=== PATIENT | male | born 1995 ===

== ENCOUNTER 2020-06-29 11:27 | Observation (INO) | payer MEDICAID, SELFPAY ==
[2020-06-29] VITALS (81 sets, daily range): BP systolic 93–126; BP diastolic 37–82; PULSE 56–103; RESP 9–31; TEMP 36.5; O2SAT 90–100
--- NOTE | 2020-06-29 11:30 | RT.EKG_ITS ---
APPROVED REPORT Exam: Resting ECG Patient Location: E HR:75 bpm ECG Measurements Heart Rate 75 AXIS NM 120 P 69 QRSd 99 QRS 40 QT 389 T 50 QTc 436 Conclusion Sinus rhythm...normal P axis, V-rate 60- 99 I have reviewed and interpreted ECG and agree with software generated interpretation.
[2020-06-29] MEDS: Normal Saline 1,000 ML 1000 ML IV (11:45)
[2020-06-29] MEDS: LORazepam 2 MG/ML VIAL ×2 (11:45→11:56)
--- NOTE | 2020-06-29 11:45 | DI.RAD_ITS ---
EXAM: XR PELVIS AP CLINICAL HISTORY: s/p fall, r/o acute fx. TECHNIQUE: 2D digital imaging was performed. COMPARISON: No exams were available for comparison FINDINGS: BONES: No acute fracture is present. No bony destructive lesion is seen. JOINTS: No dislocation present. No joint space narrowing is present. The SI joints and pubic symphysis are intact. SOFT TISSUE: Normal. IMPRESSION: Unremarkable radiographs of the pelvis. DATA REPOSITORY: RADIATION DOSE DELIVERED:
--- NOTE | 2020-06-29 11:51 | W.ED.GENAD ---
Discharge Plan Disposition Patient Disposition: [facility] INPATIENT Condition: Stable Discharge Details Clinical Impression: Post-ictal state, Seizure disorder, History of medication noncompliance Primary Care Provider: Stacy,Local ED Provider: Carol Jiang Home Meds and New Rx's Prescriptions: No Action phenytoin sodium 100 mg Capsule See Rx Instructions .ROUTE .COMPLEX RF: 0 divalproex 500 mg Tablet,Delayed Release (Dr/Ec) 1,000 mg PO BID RF: 0 topiramate 50 mg Tablet 50 mg PO BID RF: 0 Medical Decision Making 1130 -- 24-year-old male with a history of seizure disorder, medication noncompliance, cannabis dependence, GI bleed presents for seizure noted upon hotel staff checking on him in his hotel room this morning. Given 10 mg of Versed intranasal per EMS. Patient noted to be obtunded on arrival but with positive gag reflex. PERRLA. Oxygen saturation 90% on nonrebreather at 15 L. Lung sounds clear bilaterally. No evidence of trauma on exam. No orthopedic deformities noted. No head trauma noted. Patient was noted by nursing and respiratory to have what appeared to be seizure activity on his right side left approximately 30 seconds. Patient given 1mg Ativan IV. A few minutes later, he was noted to have seizure activity lasting 30 seconds for which an additional 1 mg of Ativan was given. Considering patient's history of noncompliance with medications and allergy to Keppra, will load with Dilantin IV. We will check screening labs, CT head and cervical spine, chest and pelvic x-ray. 1200 --labs reviewed. White blood cell count 19, consistent likely with stress response. ABG notes a pH of 7.2, PO2 of 73, bicarb of 19 and lactate of 4, likely status post seizure. Normal salicylates and acetaminophen. Negative alcohol. Dilantin level on low end of normal. Valproic acid level low. UDS positive for benzos likely secondary to EMS administration and also THC. 1300--chest x-ray, CT head and cervical spine negative. Pelvis x-ray negative. Patient reassessed -no further seizure activity. He is appearing more alert and moving all extremities but still not following commands. We will continue to monitor. 1540 --patient reassessed and he is more responsive to verbal but does not answer questions or follow commands. He is moving all extremities and remains hemodynamically stable. Attempted to reach his mother twice by phone and left a message with no response. Will admit patient for prolonged postictal state. Case discussed with hospitalist who accepts patient for admission. Medical Records Medical records reviewed: Yes I reviewed the patient's medical records. Imaging Data Radiologic Study: Radiologist's impression: XR PORTABLE CHEST AP CLINICAL HISTORY: s/p seizure, hypoxic, r/o acute disease TECHNIQUE: 2D digital imaging was performed. COMPARISON: No exams were available for comparison FINDINGS: LUNGS: Lungs are suboptimally inflated but clear. No pleural abnormality seen. HEART: Normal. MEDIASTINUM: Normal. BONES: Unremarkable. The stomach is somewhat distended. Clinical correlation is recommended. IMPRESSION: No acute pulmonary findings. XR PELVIS AP CLINICAL HISTORY: s/p fall, r/o acute fx. TECHNIQUE: 2D digital imaging was performed. COMPARISON: No exams were available for comparison FINDINGS: BONES: No acute fracture is present. No bony destructive lesion is seen. JOINTS: No dislocation present. No joint space narrowing is present. The SI joints and pubic symphysis are intact. SOFT TISSUE: Normal. IMPRESSION: Unremarkable radiographs of the pelvis. CT HEAD CERVICAL SPINE WO CLINICAL HISTORY: s/p seizure, head injury, r/o acute injury. TECHNIQUE: Imaging Protocol: Axial computed tomography images with coronal and sagittal reformatted images were created and reviewed COMPARISON: No exams were available for comparison FINDINGS: Head CT Ventricles and Extra axial spaces: Normal in size and morphology for the patient's age. Hemorrhage: None. Cerebral parenchyma: Normal. Midline shift: None. Brainstem/Cerebellum: Normal. Calvarium: Normal. Visualized Paranasal sinuses/Mastoids: Minimal ethmoid sinus mucosal thickening. Cervical Spine CT BONES: Vertebral body heights are maintained. Alignment is normal. There is no evidence of acute fracture. . SOFT TISSUES: No paraspinal hematoma. The airway appears intact. No pneumothorax is seen at the lung apices. IMPRESSION: Head CT: No acute abnormality. C-spine CT: Normal.. Lab Data Lab results reviewed: Yes I reviewed the patient's lab results. Labs: 06/29/20 11:55 Urine - Reflex from Ua Urine Culture - Pending Laboratory Tests Range/Units 06/29/20 06/29/20 06/29/20 11:40 11:40 11:40 WBC (4.4-10.8) 10^3/uL RBC (4.36-5.78) 10^6/uL Hgb (13.5-17.5) g/dL Hct (40.0-50.0) % MCV (80-95) fL MCH (27.0-33.0) pg MCHC (32.0-36.0) % RDW (11.8-14.1) % Plt Count (130-400) 10^3/uL MPV (8.0-11.0) fL Immature Gran % Neutrophils % Lymphocytes % Monocytes % Eosinophils % Basophils % Nucleated RBC % % Absolute Neutrophils (1.2-6.7) 10^3/uL Absolute Lymphocytes (1.2-3.4) 10^3/uL Absolute Monocytes (0.1-0.8) 10^3/uL Absolute Eosinophils (0.0-0.7) 10^3/uL Absolute Basophils (0.0-0.2) 10^3/uL PT (9.3-11.0) sec 10.1 INR (0.9-1.1) 1.0 APTT (21.0-27.5) sec 20.5 L ABG Sample Site ABG pH (7.35-7.45) ABG pCO2 (35-45) mmHg ABG pO2 (80-105) mmHg ABG HCO3 (22-26) mmol/L ABG Total CO2 (23-27) mmol/L ABG O2 Saturation (95-98) % ABG Base Excess (-2-3) mmol/L VBG Lactate (0.6-1.4) mmol/L FiO2 % Sodium (136-145) mmol/L 141 Potassium (3.5-5.1) mmol/L 3.2 L Chloride (98-107) mmol/L 107 Carbon Dioxide (21.0-32.0) mmol/L 20.5 L Anion Gap (3-11) mmol/L 13.5 H BUN (7-18) mg/dL 9 Creatinine (0.70-1.30) mg/dL 1.09 Estimated GFR/1.73 m2 (mL/min/1.73m2) >= 60.00 Glucose (74-106) mg/dL 258 H Calcium (8.5-10.1) mg/dL 8.3 L Magnesium (1.8-2.4) mg/dL 1.6 L Total Bilirubin (0.2-1.0) mg/dL 0.2 AST (15-37) U/L 12 L ALT (16-63) U/L 16 Alkaline Phosphatase (46-116) U/L 72 Troponin I (<0.06) ng/mL < 0.05 Total Protein (6.4-8.2) g/dL 6.8 Albumin (3.4-5.0) g/dL 3.6 Urine Color (Yellow) Urine Clarity (Clear) Urine pH (5-8) Ur Specific [place] (1.005-1.025) Urine Protein (Negative) mg/dL Urine Ketones (Negative) mg/dL Urine Blood (Negative) Urine Nitrite (Negative) Urine Bilirubin (Negative) Urine Urobilinogen (Up TO 0.2) EU/dL Ur Leukocyte Esterase (Negative) Urine RBC (0-2) HPF Urine WBC (0-5) HPF Ur Epithelial Cells (Negative) HPF Urine Crystals (Negative) HPF Urine Bacteria (Negative) HPF Urine Casts (Negative) LPF Urine Mucus (Negative) Urine Other (Negative) Ur Culture Indicated? Urine Glucose (Negative) mg/dL Salicylates (2.8-20.0) mg/dL Urine Opiates Screen (Negative) Urine Methadone Screen (Negative) Acetaminophen (10-30) ug/mL < 2 Ur Barbiturates Screen (Negative) Phenytoin (10.0-20.0) ug/mL Total Valproic Acid (50-100) ug/mL Ur Tricyclics Screen (Negative) Ur Amphetamines Screen (Negative) U Benzodiazepines Scrn (Negative) Urine Cocaine Screen (Negative) Ur THC Screen (Negative) Ethyl Alcohol (<3) mg/dL Range/Units 06/29/20 06/29/20 06/29/20 11:40 11:40 11:40 WBC (4.4-10.8) 10^3/uL 19.99 H RBC (4.36-5.78) 10^6/uL 4.62 Hgb (13.5-17.5) g/dL 14.0 Hct (40.0-50.0) % 42.6 MCV (80-95) fL 92.2 MCH (27.0-33.0) pg 30.3 MCHC (32.0-36.0) % 32.9 RDW (11.8-14.1) % 12.9 Plt Count (130-400) 10^3/uL 274 MPV (8.0-11.0) fL 10.2 Immature Gran % 1.7 Neutrophils % 81.7 Lymphocytes % 10.7 Monocytes % 5.3 Eosinophils % 0.4 Basophils % 0.2 Nucleated RBC % % 0 Absolute Neutrophils (1.2-6.7) 10^3/uL 16.33 H Absolute Lymphocytes (1.2-3.4) 10^3/uL 2.14 Absolute Monocytes (0.1-0.8) 10^3/uL 1.06 H Absolute Eosinophils (0.0-0.7) 10^3/uL 0.08 Absolute Basophils (0.0-0.2) 10^3/uL 0.04 PT (9.3-11.0) sec INR (0.9-1.1) APTT (21.0-27.5) sec ABG Sample Site ABG pH (7.35-7.45) ABG pCO2 (35-45) mmHg ABG pO2 (80-105) mmHg ABG HCO3 (22-26) mmol/L ABG Total CO2 (23-27) mmol/L ABG O2 Saturation (95-98) % ABG Base Excess (-2-3) mmol/L VBG Lactate (0.6-1.4) mmol/L FiO2 % Sodium (136-145) mmol/L Potassium (3.5-5.1) mmol/L Chloride (98-107) mmol/L Carbon Dioxide (21.0-32.0) mmol/L Anion Gap (3-11) mmol/L BUN (7-18) mg/dL Creatinine (0.70-1.30) mg/dL Estimated GFR/1.73 m2 (mL/min/1.73m2) Glucose (74-106) mg/dL Calcium (8.5-10.1) mg/dL Magnesium (1.8-2.4) mg/dL Total Bilirubin (0.2-1.0) mg/dL AST (15-37) U/L ALT (16-63) U/L Alkaline Phosphatase (46-116) U/L Troponin I (<0.06) ng/mL Total Protein (6.4-8.2) g/dL Albumin (3.4-5.0) g/dL Urine Color (Yellow) Urine Clarity (Clear) Urine pH (5-8) Ur Specific [place] (1.005-1.025) Urine Protein (Negative) mg/dL Urine Ketones (Negative) mg/dL Urine Blood (Negative) Urine Nitrite (Negative) Urine Bilirubin (Negative) Urine Urobilinogen (Up TO 0.2) EU/dL Ur Leukocyte Esterase (Negative) Urine RBC (0-2) HPF Urine WBC (0-5) HPF Ur Epithelial Cells (Negative) HPF Urine Crystals (Negative) HPF Urine Bacteria (Negative) HPF Urine Casts (Negative) LPF Urine Mucus (Negative) Urine Other (Negative) Ur Culture Indicated? Urine Glucose (Negative) mg/dL Salicylates (2.8-20.0) mg/dL 5.5 Urine Opiates Screen (Negative) Urine Methadone Screen (Negative) Acetaminophen (10-30) ug/mL Ur Barbiturates Screen (Negative) Phenytoin (10.0-20.0) ug/mL Total Valproic Acid (50-100) ug/mL Ur Tricyclics Screen (Negative) Ur Amphetamines Screen (Negative) U Benzodiazepines Scrn (Negative) Urine Cocaine Screen (Negative) Ur THC Screen (Negative) Ethyl Alcohol (<3) mg/dL < 3.0 Range/Units 06/29/20 06/29/20 06/29/20 11:40 11:40 11:46 WBC (4.4-10.8) 10^3/uL RBC (4.36-5.78) 10^6/uL Hgb (13.5-17.5) g/dL Hct (40.0-50.0) % MCV (80-95) fL MCH (27.0-33.0) pg MCHC (32.0-36.0) % RDW (11.8-14.1) % Plt Count (130-400) 10^3/uL MPV (8.0-11.0) fL Immature Gran % Neutrophils % Lymphocytes % Monocytes % Eosinophils % Basophils % Nucleated RBC % % Absolute Neutrophils (1.2-6.7) 10^3/uL Absolute Lymphocytes (1.2-3.4) 10^3/uL Absolute Monocytes (0.1-0.8) 10^3/uL Absolute Eosinophils (0.0-0.7) 10^3/uL Absolute Basophils (0.0-0.2) 10^3/uL PT (9.3-11.0) sec INR (0.9-1.1) APTT (21.0-27.5) sec ABG Sample Site ABG pH (7.35-7.45) ABG pCO2 (35-45) mmHg ABG pO2 (80-105) mmHg ABG HCO3 (22-26) mmol/L ABG Total CO2 (23-27) mmol/L ABG O2 Saturation (95-98) % ABG Base Excess (-2-3) mmol/L VBG Lactate (0.6-1.4) mmol/L 4.0 H* FiO2 % Sodium (136-145) mmol/L Potassium (3.5-5.1) mmol/L Chloride (98-107) mmol/L Carbon Dioxide (21.0-32.0) mmol/L Anion Gap (3-11) mmol/L BUN (7-18) mg/dL Creatinine (0.70-1.30) mg/dL Estimated GFR/1.73 m2 (mL/min/1.73m2) Glucose (74-106) mg/dL Calcium (8.5-10.1) mg/dL Magnesium (1.8-2.4) mg/dL Total Bilirubin (0.2-1.0) mg/dL AST (15-37) U/L ALT (16-63) U/L Alkaline Phosphatase (46-116) U/L Troponin I (<0.06) ng/mL Total Protein (6.4-8.2) g/dL Albumin (3.4-5.0) g/dL Urine Color (Yellow) Urine Clarity (Clear) Urine pH (5-8) Ur Specific [place] (1.005-1.025) Urine Protein (Negative) mg/dL Urine Ketones (Negative) mg/dL Urine Blood (Negative) Urine Nitrite (Negative) Urine Bilirubin (Negative) Urine Urobilinogen (Up TO 0.2) EU/dL Ur Leukocyte Esterase (Negative) Urine RBC (0-2) HPF Urine WBC (0-5) HPF Ur Epithelial Cells (Negative) HPF Urine Crystals (Negative) HPF Urine Bacteria (Negative) HPF Urine Casts (Negative) LPF Urine Mucus (Negative) Urine Other (Negative) Ur Culture Indicated? Urine Glucose (Negative) mg/dL Salicylates (2.8-20.0) mg/dL Urine Opiates Screen (Negative) Urine Methadone Screen (Negative) Acetaminophen (10-30) ug/mL Ur Barbiturates Screen (Negative) Phenytoin (10.0-20.0) ug/mL 10.6 Total Valproic Acid (50-100) ug/mL 23.6 L Ur Tricyclics Screen (Negative) Ur Amphetamines Screen (Negative) U Benzodiazepines Scrn (Negative) Urine Cocaine Screen (Negative) Ur THC Screen (Negative) Ethyl Alcohol (<3) mg/dL Range/Units 06/29/20 06/29/20 06/29/20 11:46 11:55 11:55 WBC (4.4-10.8) 10^3/uL RBC (4.36-5.78) 10^6/uL Hgb (13.5-17.5) g/dL Hct (40.0-50.0) % MCV (80-95) fL MCH (27.0-33.0) pg MCHC (32.0-36.0) % RDW (11.8-14.1) % Plt Count (130-400) 10^3/uL MPV (8.0-11.0) fL Immature Gran % Neutrophils % Lymphocytes % Monocytes % Eosinophils % Basophils % Nucleated RBC % % Absolute Neutrophils (1.2-6.7) 10^3/uL Absolute Lymphocytes (1.2-3.4) 10^3/uL Absolute Monocytes (0.1-0.8) 10^3/uL Absolute Eosinophils (0.0-0.7) 10^3/uL Absolute Basophils (0.0-0.2) 10^3/uL PT (9.3-11.0) sec INR (0.9-1.1) APTT (21.0-27.5) sec ABG Sample Site Right radial ABG pH (7.35-7.45) 7.27 L ABG pCO2 (35-45) mmHg 40 ABG pO2 (80-105) mmHg 73 L ABG HCO3 (22-26) mmol/L 19 L ABG Total CO2 (23-27) mmol/L 17 L ABG O2 Saturation (95-98) % 93 L ABG Base Excess (-2-3) mmol/L -8 L VBG Lactate (0.6-1.4) mmol/L FiO2 % 100 nrb Sodium (136-145) mmol/L Potassium (3.5-5.1) mmol/L Chloride (98-107) mmol/L Carbon Dioxide (21.0-32.0) mmol/L Anion Gap (3-11) mmol/L BUN (7-18) mg/dL Creatinine (0.70-1.30) mg/dL Estimated GFR/1.73 m2 (mL/min/1.73m2) Glucose (74-106) mg/dL Calcium (8.5-10.1) mg/dL Magnesium (1.8-2.4) mg/dL Total Bilirubin (0.2-1.0) mg/dL AST (15-37) U/L ALT (16-63) U/L Alkaline Phosphatase (46-116) U/L Troponin I (<0.06) ng/mL Total Protein (6.4-8.2) g/dL Albumin (3.4-5.0) g/dL Urine Color (Yellow) Yellow Urine Clarity (Clear) Clear Urine pH (5-8) 6.0 Ur Specific [place] (1.005-1.025) >= 1.030 H Urine Protein (Negative) mg/dL >=300 H Urine Ketones (Negative) mg/dL Negative Urine Blood (Negative) Trace-intact H Urine Nitrite (Negative) Negative Urine Bilirubin (Negative) Negative Urine Urobilinogen (Up TO 0.2) EU/dL 0.2 Ur Leukocyte Esterase (Negative) Negative Urine RBC (0-2) HPF 3-5 H Urine WBC (0-5) HPF 3-5 Ur Epithelial Cells (Negative) HPF Negative Urine Crystals (Negative) HPF Few amorphous Urine Bacteria (Negative) HPF Moderate Urine Casts (Negative) LPF Comment Urine Mucus (Negative) Heavy Urine Other (Negative) Rare renal Ur Culture Indicated? Yes Urine Glucose (Negative) mg/dL 100 Salicylates (2.8-20.0) mg/dL Urine Opiates Screen (Negative) Negative Urine Methadone Screen (Negative) Negative Acetaminophen (10-30) ug/mL Ur Barbiturates Screen (Negative) Negative Phenytoin (10.0-20.0) ug/mL Total Valproic Acid (50-100) ug/mL Ur Tricyclics Screen (Negative) Negative Ur Amphetamines Screen (Negative) Negative U Benzodiazepines Scrn (Negative) Positive A Urine Cocaine Screen (Negative) Negative Ur THC Screen (Negative) Positive A Ethyl Alcohol (<3) mg/dL ECG Data Attestation: I personally reviewed and interpreted this ECG (s) as follows: Interpretation: Rate of 75, sinus, no acute ST elevation or depression. OR 120. QRS 99. QTc 436. HPI General Mode of arrival: EMS. Date/Time Provider Initiated Documentation: 06/29/20 11:31. Limitations to Documentation: altered mental status. Information obtained by: EMS. HPI Narrative: Patient is a 24-year-old male with a known seizure disorder presents for witnessed seizure at his hotel room prior to arrival. Per EMS, staff was doing a regular check on residence in the hotel and upon staff checking on him he was noted to be sleeping in his bed. Upon EMS arrival patient was still sleeping, unknown duration of seizure. He was given 10 mg of intranasal Versed per EMS and seizure stopped. EMS states that upon transferring patient from the bed to the stretcher, he hit his head on the metal structure. He denies any change in mental status and back. Upon arrival to the ED, patient is obtunded and unable to answer questions. Able to receive paperwork from [facility] which noted patient was last seen there on 05/06/2020 for a witnessed seizure. Patient chart at that time noted that patient has a history of multiple visits for seizures with prolonged post-ictal state and a history of seizure medication noncompliance and drug abuse. His chart noted a history of cannabis dependence, generalized epilepsy, GI bleed. Related Data Home Medications Medication Instructions Recorded Confirmed divalproex 1,000 mg PO BID 06/29/20 06/29/20 phenytoin sodium See Rx Instructions .ROUTE .COMPLEX 06/29/20 06/29/20 topiramate 50 mg PO BID 06/29/20 06/29/20 Allergies Allergy/AdvReac Type Severity Reaction Status Date / Time levetiracetam [From Keppra] Allergy Unverified 06/29/20 11:40 General Stated Complaint: Seizure PIA: 1 Review of Systems Unobtainable due to mental status [facility] Medical History (Updated 06/29/20 @ 16:28 by Carol Jiang DO) Seizure disorder Social History Smoking/Tobacco Use Status: Unknown Smoking risk assessment performed?: Yes Substance use type: marijuana Details: Unable to obtain complete Hx. Exam Const General: diaphoretic Nutritional Appearance: thin Orientation: obtunded HENMT Head: normal to inspection Ears: external ears normal General nose exam: external nose normal Face and sinus: normal facial exam Mouth: oral mucosae normal and tongue abnormal (split tongue, appears healed) Teeth and gingiva: dentition normal Throat: posterior oropharynx normal and other (+ gag reflex) Eyes General: appearance normal, both eyes and all related structures Eyelids: eyelids normal Pupils: PERRL Neck Neck: normal visual inspection Lymphatic: no lymphadenopathy noted Chest Chest: normal inspection of the chest Resp Effort & Inspection: decreased respiratory effort Cardio Rate: regular rate Rhythm: regular rhythm GI Inspection: normal to inspection Palpation: soft, not firm, no guarding, no hepatosplenomegaly, no masses and nontender Auscultation: normal bowel sounds Back/Spine/Pelvis Thoracic/Lumbar Spine: thoracic and lumbar spine normal to inspection Pelvis: no pain with anterior-posterior compression Skin General skin exam: no rashes or lesions noted Neuro General: patient obtunded Cranial Nerves: gag reflex normal Extrem Other: No deformity or evidence of trauma with range of motion in bilateral upper and lower extremities. Course Vital Signs Vital signs: Vital Signs Pulse 87 06/29/20 11:28 Respiratory Rate 22 06/29/20 11:28 Blood Pressure 117/68 06/29/20 11:28 Pulse Oximetry 95 06/29/20 11:28 Pulse 87 06/29/20 11:28 Respiratory Rate 22 06/29/20 11:28 Blood Pressure 117/68 06/29/20 11:28 Blood Pressure Position Supine 06/29/20 11:28 Pulse Oximetry 95 06/29/20 11:28 Oxygen Delivery Method Non-Rebreather 06/29/20 11:28
[2020-06-29 11:54] LABS: BE -8 mmol/L (-2-3); HCO3 19 mmol/L (22-26); Site Right Radial; pCO2 40 mmHg (35-45); pH 7.27 (7.35-7.45); pO2 73 mmHg (80-105); sO2 93 % (95-98); tCO2 17 mmol/L (23-27)
[2020-06-29 11:55] LABS: FIO2 100 NRB %
--- NOTE | 2020-06-29 12:04 | DI.RAD_ITS ---
EXAM: XR PORTABLE CHEST AP CLINICAL HISTORY: s/p seizure, hypoxic, r/o acute disease TECHNIQUE: 2D digital imaging was performed. COMPARISON: No exams were available for comparison FINDINGS: LUNGS: Lungs are suboptimally inflated but clear. No pleural abnormality seen. HEART: Normal. MEDIASTINUM: Normal. BONES: Unremarkable. The stomach is somewhat distended. Clinical correlation is recommended. IMPRESSION: No acute pulmonary findings. DATA REPOSITORY: RADIATION DOSE DELIVERED:
[2020-06-29 12:07] LABS: Abs Immature Grans 0.33 10^3/uL (0.0-0.06); Absolute Basophil Count 0.04 10^3/uL (0.0-0.2); Absolute Eosinophil Count 0.08 10^3/uL (0.0-0.7); Absolute Lymphocyte Count 2.14 10^3/uL (1.2-3.4); Basophils % 0.2; Eosinophils % 0.4; HCT 42.6 % (40.0-50.0); Immature Grans % 1.7; Lymphocytes % 10.7; MCH 30.3 pg (27.0-33.0); MCHC 32.9 % (32.0-36.0); MCV 92.2 fL (80-95); MPV 10.2 fL (8.0-11.0); Monocytes % 5.3; Neutrophils % 81.7; Nucleated RBC 0 %; Platelet Count 274 10^3/uL (130-400); RBC 4.62 10^6/uL (4.36-5.78); RDW 12.9 % (11.8-14.1); RDW-SD 43.9 fL; WBC 19.99 10^3/uL (4.4-10.8)
[2020-06-29 12:11] LABS: Absolute Monocyte Count 1.06 10^3/uL (0.1-0.8); Absolute Neutrophil Count 16.33 10^3/uL (1.2-6.7)
[2020-06-29 12:12] LABS: Bilirubin Negative (Negative); Blood Trace-intact (Negative); Clarity Clear (Clear); Glucose 100 mg/dL (Negative); Ketones Negative (Negative); Leukocyte Esterase Negative (Negative); Nitrite Negative (Negative); Specific Gravity >= 1.030 (1.005-1.025); Urobilinogen 0.2 EU/dL (Up TO 0.2)
[2020-06-29 12:18] LABS: Salicylate 5.5 mg/dL (2.8-20.0)
[2020-06-29 12:20] LABS: PHENYTOIN (DILANTIN) 10.6 ug/mL (10.0-20.0)
[2020-06-29 12:22] LABS: Bacteria Moderate HPF (Negative); Crystals Few Amorphous HPF (Negative); Epithelial Cells Negative HPF (Negative); Other Cells Rare Renal (Negative)
[2020-06-29 12:23] LABS: Acetaminophen < 2 ug/mL (10-30); VALPROIC ACID 23.6 ug/mL (50-100)
[2020-06-29 12:23] LABS: C & S Indicated? Yes; Mucus Heavy (Negative)
[2020-06-29 12:24] LABS: ALT 16 U/L (16-63); AST 12 U/L (15-37); Albumin 3.6 g/dL (3.4-5.0); Alkaline Phosphatase 72 U/L (46-116); Anion Gap 13.5 mmol/L (3-11); BUN 9 mg/dL (7-18); Bilirubin, Total 0.2 mg/dL (0.2-1.0); CO2 20.5 mmol/L (21.0-32.0); CREATININE 1.09 mg/dL (0.70-1.30); Calcium 8.3 mg/dL (8.5-10.1); Chloride 107 mmol/L (98-107); Glucose 258 mg/dL (74-106); Magnesium 1.6 mg/dL (1.8-2.4); Potassium 3.2 mmol/L (3.5-5.1); Sodium 141 mmol/L (136-145); Total Protein 6.8 g/dL (6.4-8.2); Troponin I < 0.05 ng/mL (<0.06)
[2020-06-29 12:25] LABS: *AMPHETAMINES SCREEN URINE Negative (Negative); *BARBITURATES SCREEN URINE Negative (Negative); *BENZODIAZEPINES SCREEN URINE POSITIVE (Negative); Cannabinoids THC POSITIVE (Negative); Cocaine Screen,Urine Negative (Negative); METHADONE URINE SCREEN Negative (Negative); OPIATES URINE SCREEN Negative (Negative); Tricyclic Antidepressants Negative (Negative)
[2020-06-29 12:26] LABS: ETHANOL BLOOD < 3.0 mg/dL (<3); PTT Activated 20.5 sec (21.0-27.5); Prothrombin Time 10.1 sec (9.3-11.0)
[2020-06-29] MEDS: Ondansetron 4 MG/2 ML VIAL (12:30)
--- NOTE | 2020-06-29 12:40 | DI.CT_ITS ---
EXAM: CT HEAD CERVICAL SPINE WO CLINICAL HISTORY: s/p seizure, head injury, r/o acute injury. TECHNIQUE: Imaging Protocol: Axial computed tomography images with coronal and sagittal reformatted images were created and reviewed COMPARISON: No exams were available for comparison FINDINGS: Head CT Ventricles and Extra axial spaces: Normal in size and morphology for the patient's age. Hemorrhage: None. Cerebral parenchyma: Normal. Midline shift: None. Brainstem/Cerebellum: Normal. Calvarium: Normal. Visualized Paranasal sinuses/Mastoids: Minimal ethmoid sinus mucosal thickening. Cervical Spine CT BONES: Vertebral body heights are maintained. Alignment is normal. There is no evidence of acute frac ture. . SOFT TISSUES: No paraspinal hematoma. The airway appears intact. No pneumothorax is seen at the lung apices. IMPRESSION: Head CT: No acute abnormality. C-spine CT: Normal.. RADIATION DOSE DELIVERED: LINK-TO-SR Total DLP DATA REPOSITORY: All CT scans at this facility are submitted to the National Radiology Data Registry (NRDR) Dose Index Registry (DIR) with the [employer] ([employer]). RADIATION OPTIMIZATION: All CT scans at this facility use at least one of these dose optimization te chniques: automated exposure control; mA and/or kV adjustment per patient size (includes targeted exa ms where dose is matched to clinical indication); or iterative reconstruction.
--- NOTE | 2020-06-29 13:03 | NUR.NOTE ---
Nursing Note: Patient has had a total of 3 seizures since arrival to the ER. Seizure activity was limited to patients right arm and right facial. Seizures were witnessed lasting approx. 30 to 45 sec. The last seizure approx. 1225 patient appeared he was going to vomit and was given zofran 4 mg IVP. Patient received a total of Ativan 2 mg since arrival to the ER and no further seizure activity since 1225 and being loaded with dilantin. Patient has periods of intermittent restlessness. Eye open spontaneously and movement appears to be purposeful to make himself comfortable.
[2020-06-29] MEDS: Normal Saline 1,000 ML 125 ML IV (13:25)
--- NOTE | 2020-06-29 14:30 | NUR.NOTE ---
Nursing Note:Patient continues to wake up, more alert. Still does not respond verbally, has purposeful movement. No further seizure activity, SR on the monitor, remains on 8 L Oxisensor mask, VSS, see flow sheet. Discussed POC with Dr. Flores, will let patient wake up more for another hour and if possible discharge, if unable to will admit.
--- NOTE | 2020-06-29 15:49 | RESPIRATORY ---
Pt came in with seizures spo2 84% on NRB 15L. ABG done, 24 nasal trumpet placed in right nostril, suction set up, pt in high fowlers. Sp02 increased to 100% and pt has been titrated to oxy mask at 6L.
--- NOTE | 2020-06-29 17:48 | HPE_ITS ---
Date of service: 06/29/20 Time of Service: 17:48 Assessment and Plan Assessment and plan (1) Seizure disorder: Status: Chronic Assessment and plan: Question whether this is truly a breakthrough seizure versus seizure precipitated by poor medical compliance. Patient had at least 2 witnessed seizures 1 of which was witnessed by the hotel staff and EMS. Is unclear as to the duration of that event. It sounds like the event had resolved and he was brought in in an obtunded state but then had another episode in the ER and although they document to spell some is not clear as to whether there were 2 separate events or continuation of the same event. Nevertheless he responded to the Ativan and IV Dilantin he was given in the ER. Patient will be monitored overnight for any further seizures. As he is waking up we will restart his Dilantin and Depakote and Topamax. I will recheck a valproic acid level in the morning as well as a phenytoin level in the morning. Again EEG in the morning and asked neurology to weigh in on his case. I am not sure that he needs a higher dose or change in his medications when probably just need to be sure that he is being compliant with his medicines. I will correct his magnesium and potassium levels and continue IV fluid hydration overnight. (2) Post-ictal state: Status: Acute Assessment and plan: As above (3) History of medication noncompliance: Status: Acute (4) Hypokalemia: Status: Acute Assessment and plan: Corrected with parenteral potassium supplementation and recheck labs in the morning. Correct his hypomagnesemia with magnesium bolus. (5) Hypomagnesemia: Status: Acute Assessment and plan: As above (6) DVT prophylaxis: Status: Acute Assessment and plan: KEMI sanford and Herman. History of Present Illness History of Present Illness Chief Complaint: Seizure, prolonged postictal state Narrative: 24-year-old male with unknown history of seizure disorder and also history of medication noncompliance and chronic marijuana use who presented emergency department via EMS after being found at a local hotel by the clinic staff to be having a tonic-clonic seizure. EMS was contacted and they gave him Versed 10 mg intranasal. On arrival to emergency department he was obtunded with nonlabored respirations and an intact gag reflex. However patient had 2 episodes of brief episodes lasting 30 seconds or less of what was felt to be seizure activity for which he was treated with 1 mg Ativan IV both times. He was monitored in the ER and had routine labs x-rays of his chest pelvis and CT scan of his neck and head and was monitored in the ER but had a prolonged post ictal period of somnolence. He eventually became arousable and responsive to his name being called out but was not following commands therefore Dr. Jiang requested to be admitted overnight for monitoring of any further seizures as well as monitoring his postictal period. Patient was bolused with Dilantin 750 mg IV in the emergency department. He reportedly has a history of allergic reaction to Keppra. His home medications reportedly include Topamax 50 mg twice a day as well as divalproex 1000 mg twice daily and Dilantin 100 mg capsules 1 in the morning 2 at noon and 1 in the evening. Labs are remarkable for leukocytosis of 19,000, anion gap acidosis with an anion gap of 13.5 and a CO2 level of 20 and a low magnesium level of 1.6. LFT and renal function were normal. His phenytoin level was low end of therapeutic at 10.6 and his valproic acid level was subtherapeutic at 23.6 blood alcohol level is less than 3 and a Topamax level was ordered and sent out. Urine drug screen was positive for THC and benzodiazepines. CT of the head and cervical spine were unremarkable. Chest x-ray and pelvic x-ray were within normal limits. Review of Systems Unobtainable due to mental status [facility] Medical History Seizure disorder Social History Smoking/Tobacco Use Status: Unknown Smoking risk assessment performed?: Yes Substance use type: marijuana Details: Unable to obtain complete Hx. Meds Home Medications and Allergies Home Medications Medication Instructions Recorded Confirmed Type divalproex 1,000 mg PO BID 06/29/20 06/29/20 History phenytoin sodium See Rx Instructions .ROUTE .COMPLEX 06/29/20 06/29/20 History topiramate 50 mg PO BID 06/29/20 06/29/20 History Allergies Allergy/AdvReac Type Severity Reaction Status Date / Time levetiracetam [From Keppra] Allergy Unverified 06/29/20 11:40 Exam Narrative Exam Narrative: Young male who spontaneously opens his eyes when I call his name. He has trouble sustaining a conversation with me as he drifts back to sleep. When I asked him if he knows where he said he knows he is in the hospital but cannot correctly tell me the name the city. He thought he was in [facility]. He recognizes that he has seizure but cannot tell me the circumstances around which the seizure occurred nor would he or could he tell me where his seizure occurred. HEENT is remarkable for some chapped lips and dry mucous membranes. I did not see any bleeding of his oropharynx or buccal mucosa. Pupils equally round and reactive to direct and consensual light full extraocular motions intact no scleral icterus. Neck supple nontender no JVD normal carotid pulses no cervical adenopathy or thyromegaly Lungs are clear to auscultation Heart regular rate and rhythm Abdomen soft nontender NABS no palpable masses no organomegaly Extremities without bruising or lacerations I do not see any needle tracks on his feet or arms. He has full active range of motion. Neuro exam other than lethargy I am not finding any focal deficits. No facial asymmetry speech is clear and coherent normal range of motion strength in both upper and lower extremities normal sensation to light touch. Babinski reflexes absent bilaterally Results Labs Result diagrams: 06/29/20 11:40 06/29/20 11:40 Labs: Laboratory Results - last 24 hr 06/29/20 06/29/20 06/29/20 11:40 11:40 11:40 WBC RBC Hgb Hct MCV MCH MCHC RDW Plt Count MPV Immature Gran % Neutrophils % Lymphocytes % Monocytes % Eosinophils % Basophils % Nucleated RBC % Absolute Neutrophils Absolute Lymphocytes Absolute Monocytes Absolute Eosinophils Absolute Basophils PT 10.1 INR 1.0 APTT 20.5 L ABG Sample Site ABG pH ABG pCO2 ABG pO2 ABG HCO3 ABG Total CO2 ABG O2 Saturation ABG Base Excess VBG Lactate FiO2 Sodium 141 Potassium 3.2 L Chloride 107 Carbon Dioxide 20.5 L Anion Gap 13.5 H BUN 9 Creatinine 1.09 Estimated GFR/1.73 m2 >= 60.00 Glucose 258 H Calcium 8.3 L Magnesium 1.6 L Total Bilirubin 0.2 AST 12 L ALT 16 Alkaline Phosphatase 72 Troponin I < 0.05 Total Protein 6.8 Albumin 3.6 Urine Color Urine Clarity Urine pH Ur Specific [place] Urine Protein Urine Ketones Urine Blood Urine Nitrite Urine Bilirubin Urine Urobilinogen Ur Leukocyte Esterase Urine RBC Urine WBC Ur Epithelial Cells Urine Crystals Urine Bacteria Urine Casts Urine Mucus Urine Other Ur Culture Indicated? Urine Glucose Salicylates Urine Opiates Screen Urine Methadone Screen Acetaminophen < 2 Ur Barbiturates Screen Phenytoin Total Valproic Acid Ur Tricyclics Screen Ur Amphetamines Screen U Benzodiazepines Scrn Urine Cocaine Screen Ur THC Screen Ethyl Alcohol 06/29/20 06/29/20 06/29/20 11:40 11:40 11:40 WBC 19.99 H RBC 4.62 Hgb 14.0 Hct 42.6 MCV 92.2 MCH 30.3 MCHC 32.9 RDW 12.9 Plt Count 274 MPV 10.2 Immature Gran % 1.7 Neutrophils % 81.7 Lymphocytes % 10.7 Monocytes % 5.3 Eosinophils % 0.4 Basophils % 0.2 Nucleated RBC % 0 Absolute Neutrophils 16.33 H Absolute Lymphocytes 2.14 Absolute Monocytes 1.06 H Absolute Eosinophils 0.08 Absolute Basophils 0.04 PT INR APTT ABG Sample Site ABG pH ABG pCO2 ABG pO2 ABG HCO3 ABG Total CO2 ABG O2 Saturation ABG Base Excess VBG Lactate FiO2 Sodium Potassium Chloride Carbon Dioxide Anion Gap BUN Creatinine Estimated GFR/1.73 m2 Glucose Calcium Magnesium Total Bilirubin AST ALT Alkaline Phosphatase Troponin I Total Protein Albumin Urine Color Urine Clarity Urine pH Ur Specific [place] Urine Protein Urine Ketones Urine Blood Urine Nitrite Urine Bilirubin Urine Urobilinogen Ur Leukocyte Esterase Urine RBC Urine WBC Ur Epithelial Cells Urine Crystals Urine Bacteria Urine Casts Urine Mucus Urine Other Ur Culture Indicated? Urine Glucose Salicylates 5.5 Urine Opiates Screen Urine Methadone Screen Acetaminophen Ur Barbiturates Screen Phenytoin Total Valproic Acid Ur Tricyclics Screen Ur Amphetamines Screen U Benzodiazepines Scrn Urine Cocaine Screen Ur THC Screen Ethyl Alcohol < 3.0 06/29/20 06/29/20 06/29/20 11:40 11:40 11:46 WBC RBC Hgb Hct MCV MCH MCHC RDW Plt Count MPV Immature Gran % Neutrophils % Lymphocytes % Monocytes % Eosinophils % Basophils % Nucleated RBC % Absolute Neutrophils Absolute Lymphocytes Absolute Monocytes Absolute Eosinophils Absolute Basophils PT INR APTT ABG Sample Site ABG pH ABG pCO2 ABG pO2 ABG HCO3 ABG Total CO2 ABG O2 Saturation ABG Base Excess VBG Lactate 4.0 H* FiO2 Sodium Potassium Chloride Carbon Dioxide Anion Gap BUN Creatinine Estimated GFR/1.73 m2 Glucose Calcium Magnesium Total Bilirubin AST ALT Alkaline Phosphatase Troponin I Total Protein Albumin Urine Color Urine Clarity Urine pH Ur Specific [place] Urine Protein Urine Ketones Urine Blood Urine Nitrite Urine Bilirubin Urine Urobilinogen Ur Leukocyte Esterase Urine RBC Urine WBC Ur Epithelial Cells Urine Crystals Urine Bacteria Urine Casts Urine Mucus Urine Other Ur Culture Indicated? Urine Glucose Salicylates Urine Opiates Screen Urine Methadone Screen Acetaminophen Ur Barbiturates Screen Phenytoin 10.6 Total Valproic Acid 23.6 L Ur Tricyclics Screen Ur Amphetamines Screen U Benzodiazepines Scrn Urine Cocaine Screen Ur THC Screen Ethyl Alcohol 06/29/20 06/29/20 06/29/20 11:46 11:55 11:55 WBC RBC Hgb Hct MCV MCH MCHC RDW Plt Count MPV Immature Gran % Neutrophils % Lymphocytes % Monocytes % Eosinophils % Basophils % Nucleated RBC % Absolute Neutrophils Absolute Lymphocytes Absolute Monocytes Absolute Eosinophils Absolute Basophils PT INR APTT ABG Sample Site Right radial ABG pH 7.27 L ABG pCO2 40 ABG pO2 73 L ABG HCO3 19 L ABG Total CO2 17 L ABG O2 Saturation 93 L ABG Base Excess -8 L VBG Lactate FiO2 100 nrb Sodium Potassium Chloride Carbon Dioxide Anion Gap BUN Creatinine Estimated GFR/1.73 m2 Glucose Calcium Magnesium Total Bilirubin AST ALT Alkaline Phosphatase Troponin I Total Protein Albumin Urine Color Yellow Urine Clarity Clear Urine pH 6.0 Ur Specific [place] >= 1.030 H Urine Protein >=300 H Urine Ketones Negative Urine Blood Trace-intact H Urine Nitrite Negative Urine Bilirubin Negative Urine Urobilinogen 0.2 Ur Leukocyte Esterase Negative Urine RBC 3-5 H Urine WBC 3-5 Ur Epithelial Cells Negative Urine Crystals Few amorphous Urine Bacteria Moderate Urine Casts Comment Urine Mucus Heavy Urine Other Rare renal Ur Culture Indicated? Yes Urine Glucose 100 Salicylates Urine Opiates Screen Negative Urine Methadone Screen Negative Acetaminophen Ur Barbiturates Screen Negative Phenytoin Total Valproic Acid Ur Tricyclics Screen Negative Ur Amphetamines Screen Negative U Benzodiazepines Scrn Positive A Urine Cocaine Screen Negative Ur THC Screen Positive A Ethyl Alcohol Last Vital Signs Temp 36.5 C 06/29/20 16:45 Pulse 79 06/29/20 16:45 Resp 20 06/29/20 14:10 BP 110/63 06/29/20 14:03 Pulse Ox 100 06/29/20 14:10
[2020-06-29] MEDS: POTASSIUM CHLORIDE 20 MEQ/100 ML BAG 50 MEQ IVPB (20:15)
[2020-06-29] MEDS: MAGNESIUM SULFATE 4 GM/100 ML BAG IVPB (20:19)
[2020-06-29] MEDS: Topiramate 50 MG TAB PO (20:21)
[2020-06-29] MEDS: Enoxaparin 40 MG/0.4 ML SYR SC (20:21)
[2020-06-29] MEDS: Normal Saline Flush 10 ML SYR (20:21)
[2020-06-29] MEDS: Divalproex 500 MG TABEC 1000 MG PO (20:22)
[2020-06-30] MEDS: Acetaminophen 325 MG TAB PO ×2 (00:26→08:15)
[2020-06-30] MEDS: POTASSIUM CHLORIDE 20 MEQ/100 ML BAG 12.5 MEQ IVPB (02:44)
[2020-06-30 06:21] VITALS: BP 104/53; PULSE 86; RESP 15; TEMP 36.3; O2SAT 97
[2020-06-30 06:44] LABS: Abs Immature Grans 0.04 10^3/uL (0.0-0.06); Absolute Basophil Count 0.01 10^3/uL (0.0-0.2); Absolute Lymphocyte Count 1.44 10^3/uL (1.2-3.4); Absolute Monocyte Count 0.95 10^3/uL (0.1-0.8); Basophils % 0.1; HCT 39.3 % (40.0-50.0); Immature Grans % 0.4; Lymphocytes % 15.5; MCH 30.4 pg (27.0-33.0); MCHC 33.1 % (32.0-36.0); MCV 91.8 fL (80-95); MPV 10.1 fL (8.0-11.0); Monocytes % 10.2; Neutrophils % 73.8; Nucleated RBC 0 %; Platelet Count 157 10^3/uL (130-400); RBC 4.28 10^6/uL (4.36-5.78); RDW 12.7 % (11.8-14.1); RDW-SD 42.9 fL; WBC 9.27 10^3/uL (4.4-10.8)
[2020-06-30 06:49] LABS: Absolute Neutrophil Count 6.84 10^3/uL (1.2-6.7)
[2020-06-30 06:53] LABS: Anion Gap 7.2 mmol/L (3-11); BUN 5 mg/dL (7-18); CO2 26.8 mmol/L (21.0-32.0); CREATININE 1.02 mg/dL (0.70-1.30); Calcium 7.9 mg/dL (8.5-10.1); Chloride 108 mmol/L (98-107); Glucose 121 mg/dL (74-106); Magnesium 2.1 mg/dL (1.8-2.4); Potassium 3.8 mmol/L (3.5-5.1); Sodium 142 mmol/L (136-145)
[2020-06-30 06:58] LABS: VALPROIC ACID 43.9 ug/mL (50-100)
[2020-06-30 07:01] LABS: PHENYTOIN (DILANTIN) 16.7 ug/mL (10.0-20.0)
[2020-06-30 07:25] VITALS: PULSE 80
[2020-06-30] MEDS: Divalproex 500 MG TABEC 1000 MG PO (07:54)
[2020-06-30] MEDS: Topiramate 50 MG TAB PO ×2 (07:54→11:05)
[2020-06-30 08:29] LABS: COVID-19 RT-PCR UVMMC Result Negative (Negative)
[2020-06-30] MEDS: Divalproex 500 MG TABEC PO (08:50)
--- NOTE | 2020-06-30 09:14 | PDOC.CMIN ---
- If Service Date Differs Date of service: 06/30/20 Time of Service: 09:14 Care Management Initial Assess REASON FOR HOSPITALIZATION:: Seizure disorder PAST MEDICAL HISTORY/PAST SURGICAL HISTORY:: Medical History . Seizure disorder PREVIOUS FUNCTIONAL STATUS/SOCIAL/FAMILY SUPPORTS:: Terell is currently living at the [facility] in [place]. His mother and step father live in [facility]. He has 2 half brothers, a half sister and a step brother. He maintains contact with his brothers but not his siter who is only 4 years old and lives in [place]. Antoine is currently unemployed and is hoping to get disability. His seizure disorder has been a barrier to getting work he stated. CURRENT FUNCTIONAL STATUS:: Panfilo was preparing to discharge when CM met with him. He was given information re:[facility] and also the [facility] to assist with his disability application. CM coordinated transportation back to [place] through [facility]. ADVANCE DIRECTIVES:: None on file- not interested Has patient been provided with info about the portal/API?: Yes Did the patient sign up for the portal?: No CODE STATUS:: Full Code INSURANCE COVERAGE / FINANCIAL ISSUES:: Medicaid CURRENT HOME/COMMUNITY SERVICES/EQUIPMENT:: Panfilo is working with [employer] for housing and other needs. CM has sent a referral to [facility] and gave him contact information for [facility] to assist with an application for disability. PRIMARY CARE PHYSICIAN:: none local POTENTIAL DISCHARGE NEEDS:: Vocational rehab for assistance with disability PATIENT/FAMILY EDUCATION NEEDS:: Discharge plan, limitations, follow up plan, [employer] TRANSPORTATION:: via private vehicle with friends/family PLAN:: Panfilo will be discharged back to the [facility] with no new services. He will follow up with his PCP in [place] and transport via [facility].
--- NOTE | 2020-06-30 09:15 | W.PM.PROGNOT ---
Date of Service Date of service: 06/30/20 Time of Service: 09:15 Assessment and Plan Assessment and plan (1) Seizure disorder: Status: Chronic Assessment and plan: Continue current doses of Dilantin and Depakote and Topamax. Check EEG. We will consult with neurology regarding further management. (2) Post-ictal state: Status: Acute Assessment and plan: No longer postictal. He is alert and able to take his medications orally. (3) Hypokalemia: Status: Acute Assessment and plan: Resolved after IV and oral supplementation (4) Hypomagnesemia: Status: Acute Assessment and plan: Resolved with IV supplementation. (5) History of medication noncompliance: Status: Acute Assessment and plan: Patient denies noncompliance with his medications however his low valproic acid level and low phenytoin level would suggest otherwise. I think he will need to have a repeat level drawn once he is reached steady state. Will order repeat levels to be drawn next week and sent to his PCP (6) DVT prophylaxis: Status: Acute Assessment and plan: Remains on Lovenox and KEMI hose. Now that he is awake alert and oriented he did no longer needs DVT prophylaxis. He can freely ambulate. Subjective Subjective Interval history since last seen: Patient is awake and alert and oriented to person place time and circumstance. He has had no further seizure activity. His phenytoin level is therapeutic at 16 however his valproic acid level is subtherapeutic at 43. I have given him an extra dose of Depakote 500 mg this morning in addition to his usual dose of 1000 mg twice a day. Patient denies skipping any doses of his medicines. He is from the [facility] and usually sees Dr. Lehman however the patient was homeless and contacted 211 to obtain emergency housing. He is currently living in a motel at the [facility] in [facility]. He gets his prescriptions through [facility] says he has not been out of his antiepileptic drugs. Nevertheless he was found by hotel full time staff interpreter having a seizure. I would like him to get an EEG today and I requested a neurology consult to help guide his medication management. However, I feel that he can be discharged later today. Exam Narrative Exam Narrative: Young male alert and oriented person place time circumstance. No tremors. No focal neurologic deficits. Speech is clear and coherent. Objective Last Vital Signs Temp 36.3 C L 12/30/20 06:21 Pulse 80 06/30/20 07:25 Resp 15 06/30/20 06:21 BP 104/53 L 06/30/20 06:21 Pulse Ox 97 06/30/20 06:21 Laboratory Results - last 24 hr 06/29/20 06/29/20 06/29/20 11:40 11:40 11:40 WBC RBC Hgb Hct MCV MCH MCHC RDW Plt Count MPV Immature Gran % Neutrophils % Lymphocytes % Monocytes % Eosinophils % Basophils % Nucleated RBC % Absolute Neutrophils Absolute Lymphocytes Absolute Monocytes Absolute Eosinophils Absolute Basophils PT 10.1 INR 1.0 APTT 20.5 L ABG Sample Site ABG pH ABG pCO2 ABG pO2 ABG HCO3 ABG Total CO2 ABG O2 Saturation ABG Base Excess VBG Lactate FiO2 Sodium 141 Potassium 3.2 L Chloride 107 Carbon Dioxide 20.5 L Anion Gap 13.5 H BUN 9 Creatinine 1.09 Estimated GFR/1.73 m2 >= 60.00 Glucose 258 H Calcium 8.3 L Magnesium 1.6 L Total Bilirubin 0.2 AST 12 L ALT 16 Alkaline Phosphatase 72 Troponin I < 0.05 Total Protein 6.8 Albumin 3.6 Urine Color Urine Clarity Urine pH Ur Specific [place] Urine Protein Urine Ketones Urine Blood Urine Nitrite Urine Bilirubin Urine Urobilinogen Ur Leukocyte Esterase Urine RBC Urine WBC Ur Epithelial Cells Urine Crystals Urine Bacteria Urine Casts Urine Mucus Urine Other Ur Culture Indicated? Urine Glucose Salicylates Urine Opiates Screen Urine Methadone Screen Acetaminophen < 2 Ur Barbiturates Screen Phenytoin Total Valproic Acid Ur Tricyclics Screen Ur Amphetamines Screen U Benzodiazepines Scrn Urine Cocaine Screen Ur THC Screen Ethyl Alcohol SARS-CoV-2 (PCR) Nasopharyn COVID-19 PCR Ref Test Perform Site 06/29/20 06/29/20 06/29/20 11:40 11:40 11:40 WBC 19.99 H RBC 4.62 Hgb 14.0 Hct 42.6 MCV 92.2 MCH 30.3 MCHC 32.9 RDW 12.9 Plt Count 274 MPV 10.2 Immature Gran % 1.7 Neutrophils % 81.7 Lymphocytes % 10.7 Monocytes % 5.3 Eosinophils % 0.4 Basophils % 0.2 Nucleated RBC % 0 Absolute Neutrophils 16.33 H Absolute Lymphocytes 2.14 Absolute Monocytes 1.06 H Absolute Eosinophils 0.08 Absolute Basophils 0.04 PT INR APTT ABG Sample Site ABG pH ABG pCO2 ABG pO2 ABG HCO3 ABG Total CO2 ABG O2 Saturation ABG Base Excess VBG Lactate FiO2 Sodium Potassium Chloride Carbon Dioxide Anion Gap BUN Creatinine Estimated GFR/1.73 m2 Glucose Calcium Magnesium Total Bilirubin AST ALT Alkaline Phosphatase Troponin I Total Protein Albumin Urine Color Urine Clarity Urine pH Ur Specific [place] Urine Protein Urine Ketones Urine Blood Urine Nitrite Urine Bilirubin Urine Urobilinogen Ur Leukocyte Esterase Urine RBC Urine WBC Ur Epithelial Cells Urine Crystals Urine Bacteria Urine Casts Urine Mucus Urine Other Ur Culture Indicated? Urine Glucose Salicylates 5.5 Urine Opiates Screen Urine Methadone Screen Acetaminophen Ur Barbiturates Screen Phenytoin Total Valproic Acid Ur Tricyclics Screen Ur Amphetamines Screen U Benzodiazepines Scrn Urine Cocaine Screen Ur THC Screen Ethyl Alcohol < 3.0 SARS-CoV-2 (PCR) Nasopharyn COVID-19 PCR Ref Test Perform Site 06/29/20 06/29/20 06/29/20 11:40 11:40 11:46 WBC RBC Hgb Hct MCV MCH MCHC RDW Plt Count MPV Immature Gran % Neutrophils % Lymphocytes % Monocytes % Eosinophils % Basophils % Nucleated RBC % Absolute Neutrophils Absolute Lymphocytes Absolute Monocytes Absolute Eosinophils Absolute Basophils PT INR APTT ABG Sample Site ABG pH ABG pCO2 ABG pO2 ABG HCO3 ABG Total CO2 ABG O2 Saturation ABG Base Excess VBG Lactate 4.0 H* FiO2 Sodium Potassium Chloride Carbon Dioxide Anion Gap BUN Creatinine Estimated GFR/1.73 m2 Glucose Calcium Magnesium Total Bilirubin AST ALT Alkaline Phosphatase Troponin I Total Protein Albumin Urine Color Urine Clarity Urine pH Ur Specific [place] Urine Protein Urine Ketones Urine Blood Urine Nitrite Urine Bilirubin Urine Urobilinogen Ur Leukocyte Esterase Urine RBC Urine WBC Ur Epithelial Cells Urine Crystals Urine Bacteria Urine Casts Urine Mucus Urine Other Ur Culture Indicated? Urine Glucose Salicylates Urine Opiates Screen Urine Methadone Screen Acetaminophen Ur Barbiturates Screen Phenytoin 10.6 Total Valproic Acid 23.6 L Ur Tricyclics Screen Ur Amphetamines Screen U Benzodiazepines Scrn Urine Cocaine Screen Ur THC Screen Ethyl Alcohol SARS-CoV-2 (PCR) Nasopharyn COVID-19 PCR Ref Test Perform Site 06/29/20 06/29/20 06/29/20 11:46 11:55 11:55 WBC RBC Hgb Hct MCV MCH MCHC RDW Plt Count MPV Immature Gran % Neutrophils % Lymphocytes % Monocytes % Eosinophils % Basophils % Nucleated RBC % Absolute Neutrophils Absolute Lymphocytes Absolute Monocytes Absolute Eosinophils Absolute Basophils PT INR APTT ABG Sample Site Right radial ABG pH 7.27 L ABG pCO2 40 ABG pO2 73 L ABG HCO3 19 L ABG Total CO2 17 L ABG O2 Saturation 93 L ABG Base Excess -8 L VBG Lactate FiO2 100 nrb Sodium Potassium Chloride Carbon Dioxide Anion Gap BUN Creatinine Estimated GFR/1.73 m2 Glucose Calcium Magnesium Total Bilirubin AST ALT Alkaline Phosphatase Troponin I Total Protein Albumin Urine Color Yellow Urine Clarity Clear Urine pH 6.0 Ur Specific [place] >= 1.030 H Urine Protein >=300 H Urine Ketones Negative Urine Blood Trace-intact H Urine Nitrite Negative Urine Bilirubin Negative Urine Urobilinogen 0.2 Ur Leukocyte Esterase Negative Urine RBC 3-5 H Urine WBC 3-5 Ur Epithelial Cells Negative Urine Crystals Few amorphous Urine Bacteria Moderate Urine Casts Comment Urine Mucus Heavy Urine Other Rare renal Ur Culture Indicated? Yes Urine Glucose 100 Salicylates Urine Opiates Screen Negative Urine Methadone Screen Negative Acetaminophen Ur Barbiturates Screen Negative Phenytoin Total Valproic Acid Ur Tricyclics Screen Negative Ur Amphetamines Screen Negative U Benzodiazepines Scrn Positive A Urine Cocaine Screen Negative Ur THC Screen Positive A Ethyl Alcohol SARS-CoV-2 (PCR) Nasopharyn COVID-19 PCR Ref Test Perform Site 06/29/20 06/29/20 06/30/20 16:32 17:47 06:10 WBC RBC Hgb Hct MCV MCH MCHC RDW Plt Count MPV Immature Gran % Neutrophils % Lymphocytes % Monocytes % Eosinophils % Basophils % Nucleated RBC % Absolute Neutrophils Absolute Lymphocytes Absolute Monocytes Absolute Eosinophils Absolute Basophils PT INR APTT ABG Sample Site ABG pH ABG pCO2 ABG pO2 ABG HCO3 ABG Total CO2 ABG O2 Saturation ABG Base Excess VBG Lactate FiO2 Sodium 142 Potassium 3.8 Chloride 108 H Carbon Dioxide 26.8 Anion Gap 7.2 BUN 5 L Creatinine 1.02 Estimated GFR/1.73 m2 >= 60.00 Glucose 121 H D Calcium 7.9 L Magnesium Cancelled 2.1 Total Bilirubin AST ALT Alkaline Phosphatase Troponin I Total Protein Albumin Urine Color Urine Clarity Urine pH Ur Specific [place] Urine Protein Urine Ketones Urine Blood Urine Nitrite Urine Bilirubin Urine Urobilinogen Ur Leukocyte Esterase Urine RBC Urine WBC Ur Epithelial Cells Urine Crystals Urine Bacteria Urine Casts Urine Mucus Urine Other Ur Culture Indicated? Urine Glucose Salicylates Urine Opiates Screen Urine Methadone Screen Acetaminophen Ur Barbiturates Screen Phenytoin Total Valproic Acid Ur Tricyclics Screen Ur Amphetamines Screen U Benzodiazepines Scrn Urine Cocaine Screen Ur THC Screen Ethyl Alcohol SARS-CoV-2 (PCR) Negative Nasopharyn COVID-19 PCR Not Applicable Ref Test Perform Site [place] [facility] 06/30/20 06/30/20 06/30/20 06:10 06:10 06:10 WBC 9.27 D RBC 4.28 L Hgb 13.0 L Hct 39.3 L MCV 91.8 MCH 30.4 MCHC 33.1 RDW 12.7 Plt Count 157 D MPV 10.1 Immature Gran % 0.4 Neutrophils % 73.8 Lymphocytes % 15.5 Monocytes % 10.2 Eosinophils % 0.0 Basophils % 0.1 Nucleated RBC % 0 Absolute Neutrophils 6.84 H Absolute Lymphocytes 1.44 Absolute Monocytes 0.95 H Absolute Eosinophils 0.00 Absolute Basophils 0.01 PT INR APTT ABG Sample Site ABG pH ABG pCO2 ABG pO2 ABG HCO3 ABG Total CO2 ABG O2 Saturation ABG Base Excess VBG Lactate FiO2 Sodium Potassium Chloride Carbon Dioxide Anion Gap BUN Creatinine Estimated GFR/1.73 m2 Glucose Calcium Magnesium Total Bilirubin AST ALT Alkaline Phosphatase Troponin I Total Protein Albumin Urine Color Urine Clarity Urine pH Ur Specific [place] Urine Protein Urine Ketones Urine Blood Urine Nitrite Urine Bilirubin Urine Urobilinogen Ur Leukocyte Esterase Urine RBC Urine WBC Ur Epithelial Cells Urine Crystals Urine Bacteria Urine Casts Urine Mucus Urine Other Ur Culture Indicated? Urine Glucose Salicylates Urine Opiates Screen Urine Methadone Screen Acetaminophen Ur Barbiturates Screen Phenytoin 16.7 Total Valproic Acid 43.9 L Ur Tricyclics Screen Ur Amphetamines Screen U Benzodiazepines Scrn Urine Cocaine Screen Ur THC Screen Ethyl Alcohol SARS-CoV-2 (PCR) Nasopharyn COVID-19 PCR Ref Test Perform Site
--- NOTE | 2020-06-30 13:59 | NUR.NOTE ---
medical records contacted. discharge packet faxed to [facility] primary care
--- NOTE | 2020-06-30 15:17 | PDOC.CMDIS ---
- If Service Date Differs Date of service: 06/30/20 Time of Service: 15:17 Care Management Discharge Reason for Hospitalization: Seizure disorder
[2020-07-01 08:00] LABS: Topiramate <1.0 mcg/mL
--- NOTE | 2020-07-02 21:53 | DSE_ITS ---
Date of service: 06/30/20 Time of Service: 12:00 DS: Diagnosis Discharge Diagnosis (1) Seizure disorder: Status: Chronic (2) Post-ictal state: Status: Resolved (3) Hypokalemia: Status: Resolved (4) Hypomagnesemia: Status: Resolved (5) History of medication noncompliance: Status: Chronic Discharge Plan Disposition Patient Disposition: HOME Condition: Stable Discharge Details Reason For Visit: SEIZURE Admit Date/Time: 06/29/20 15:36 Admit Provider: Doug Ferguson Attending Provider: Doug Ferguson [facility] Hospital Course: 24-year-old male with known history of seizure disorder and also history of medication noncompliance and chronic marijuana use who presented emergency department via EMS after being found at a local hotel by the clinic staff to be having a tonic-clonic seizure. EMS was contacted and they gave him Versed 10 mg intranasal. On arrival to emergency department he was obtunded with nonlabored respirations and an intact gag reflex. However patient had 2 episodes of brief episodes lasting 30 seconds or less of what was felt to be seizure activity for which he was treated with 1 mg Ativan IV both times. He was monitored in the ER and had routine labs x-rays of his chest pelvis and CT scan of his neck and head and was monitored in the ER but had a prolonged post ictal period of somnolence. He eventually became arousable and responsive to his name being called out but was not following commands therefore Dr. Jiang requested to be admitted overnight for monitoring of any further seizures as well as monitoring his postictal period. Patient was bolused with Dilantin 750 mg IV in the emergency department. Patient has been on Topamax 50 mg twice a day as well as divalproex 1000 mg twice a day in addition to Dilantin 100 mg capsules 1 in the morning, 2 at noon, 1 in the evening. His admission labs were remarkable for leukocytosis of 19,000 along with an anion gap acidosis with an anion gap of 13.5 and a CO2 level of 20 with a low magnesium of 1.6 with normal kidney function and LFTs. His phenytoin level was at the low end of therapeutic at 10.6 and his valproic acid level was subtherapeutic at 23.6. His blood alcohol level was less than 3. Urine drug screen was positive for THC and benzodiazepines. CT of the head and neck were unremarkable chest x-ray and pelvic x-ray were within normal limits. Patient was monitored overnight in the intensive care unit. He had no further seizure episodes. He progressively became more arousable and more oriented. He was able to take oral medications and he was given an additional dose of his Depakote 500 mg. EEG and neurology consult was ordered but because the senior environmental technician was not available the test was canceled. The neurologist was on vacation but she answered my text message and we discussed management. She recommended increase of his Topamax to 100 mg twice a day. She requested follow-up with her in the next 3 to 4 weeks. I indicated the patient that he should have follow-up outpatient EEG and follow-up with the neurologist. He indicated that he is only temporarily living in the area and will be moving back to the [facility] by mid July. He was discharged home under markedly improved condition. No further seizures occurred while he was hospitalized. Home Meds and New Rx's Prescriptions: Continued phenytoin sodium 100 mg Capsule See Rx Instructions .ROUTE .COMPLEX RF: 0 divalproex 500 mg Tablet,Delayed Release (Dr/Ec) 1,000 mg PO BID RF: 0 Changed topiramate 50 mg Tablet 100 mg PO BID Qty: 60 RF: 1 Discharge Instructions Instructions: Epilepsy (DC) Referrals: Martir Kong [ NON-[facility] STAFF PHYSICIAN] - Tori Pat MD [ [facility] STAFF PHYSICIAN] - 07/29/20 12:30 pm Activity:: no bath, swim, heights Equipment/Supplies:: No Equipment Needed Diet:: Normal Diet Discharge Orders Discharge Orders: Discharge Order (Routine); Ordered 06/30/20 Ordered By: Doug Ferguson Discharge Data Discharge Date/Time-TO BE ENTERED AT DEPARTURE: 06/30/20 12:49 Discharge Comment: IV d/Cd pt offers no complaints, left ambulatory DS: Summary Status at Discharge Functional status at discharge: independent ambulation Overall status at discharge: patient is back to baseline Mental Status: mental status grossly normal Speech and Movement: speech and movement normal Mood: congruent mood Affect: normal affect Time Spent with Patient providing and/or coordinating discharge services: Greater than 30 minutes Exam Narrative Exam Narrative: Young male alert and oriented person place time circumstance. No tremors. No focal neurologic deficits. Speech is clear and coherent. Psych Mental Status: mental status grossly normal Speech and Movement: speech and movement normal Mood: congruent mood Affect: normal affect DS: Data Vitals/I&O Vitals and I&O: Vital Signs Temperature 36.3 C L 06/30/20 06:21 Temperature Source Temporal Artery Scan 06/30/20 06:21 Pulse 80 06/30/20 07:25 Pulse 77 06/29/20 21:00 Respiratory Rate 15 06/30/20 06:21 Respiratory Effort 06/30/20 07:09 Respiratory Depth Normal 06/30/20 07:09 Respiratory Pattern Normal 06/30/20 07:09 Blood Pressure 104/53 L 06/30/20 06:21 Blood Pressure Mean 73 06/29/20 20:17 Blood Pressure Position Supine 06/29/20 16:45 Pulse Oximetry 97 06/30/20 06:21 Oxygen Delivery Method Room Air 06/30/20 06:21 Oxygen Flow Rate 0 06/30/20 06:21 Fraction of Inspired Oxygen (FIO2) 100 06/29/20 11:40 Pain Level 6 06/30/20 08:15 Comment 06/29/20 11:40 [facility] Medical History Seizure disorder Social History Smoking/Tobacco Use Status: Unknown Smoking risk assessment performed?: Yes Substance use type: marijuana Details: Unable to obtain complete Hx.
== END 2020-06-30 12:49 | disposition home or self-care (01) ==
LOC: ER 16:28 → ICU 16:47
PROVIDERS: Nurse Practitioner Acute Care; Admitting Provider Internal Medicine; Emergency Provider Physician Assistant; Visit Provider Internal Medicine
DX: G40.909 Epilepsy, unspecified, not intractable, without status epilepticus (principal); Z91.14 Patient's other noncompliance with medication regimen; E87.6 Hypokalemia; E83.42 Hypomagnesemia; F12.90 Cannabis use, unspecified, uncomplicated
CPT/HCPCS: 36415; 51702; 80048; 80053; 80307; 82805; 93005; 96361; 96365; 96375; 99217; 99220; 99226; 99285; J1650; U0003; 36600; 70450; 71045; 72125; 72170; 80164; 80185; 80201; 80320; 80329; 81003; 81015; 83605; 83735; 84484; 85025; 85610; 85730; 87086; 93010; 99238; G0378; J1165; J2060; J2405; J3475; J3480

== ENCOUNTER 2020-07-30 13:39 | Emergency (ER) | payer MEDICAID, SELFPAY ==
[2020-07-30] VITALS (40 sets, daily range): BP systolic 91–112; BP diastolic 51–68; PULSE 46–94; RESP 7–22; TEMP 36.1; O2SAT 97–100
--- NOTE | 2020-07-30 13:30 | RT.EKG_ITS ---
APPROVED REPORT Exam: Resting ECG Patient Location: E HR:67 bpm ECG Measurements Heart Rate 67 AXIS RI 114 P 59 QRSd 93 QRS 35 QT 382 T 42 QTc 404 Conclusion Sinus rhythm...normal P axis, V-rate 60- 99 I have reviewed and interpreted ECG and agree with software generated interpretation.
--- NOTE | 2020-07-30 13:39 | ED.GENADUL_ITS ---
Discharge Plan Disposition Patient Disposition: HOME Condition: Stable Discharge Details Clinical Impression: Seizure disorder, History of medication noncompliance Primary Care Provider: Stacy,Local ED Provider: Doug Hope Home Meds and New Rx's Prescriptions: Continued phenytoin sodium 100 mg Capsule See Rx Instructions .ROUTE .COMPLEX RF: 0 divalproex 500 mg Tablet,Delayed Release (Dr/Ec) 1,000 mg PO BID RF: 0 topiramate 50 mg Tablet 100 mg PO BID Qty: 60 RF: 1 Discharge Instructions Instructions: Recurrent Seizures in Adults (ED) Additional Instructions: At this time your work-up in the ER does not reveal any obvious emergent process. I cannot stress the importance of getting adequate sleep and taking your medications as directed. I have placed you on the neurology list, please contact their office on Sunday for prompt outpatient reevaluation. Please watch for new or worsening symptoms and return to the ER for any concerns. Referrals: Tori Pat MD [ [facility] STAFF PHYSICIAN] - Discharge Data Discharge Date/Time-TO BE ENTERED AT DEPARTURE: 07/30/20 21:41 Medical Decision Making <SUSAN Hines - Last Filed: 08/02/20 21:52> Patient is a 24-year-old male with a known history of seizure disorder. He describes the EMS in a postictal state. Was found by roommate. Postictal when EMS arrived. The patient has been noncompliant with medications historically. Currently, he is not able to speak with me. He has his eyes open and is able to look at me and follow some commands. However, his compliance with these as well as communication is very limited and intermittent. Denies any evidence of trauma. Patient did not bite his tongue. No palpable skull fracture hemotympanum. I did review the patient's chart he has been noncompliant with medications historically. I am unable to determine this at this time based on the patient's current mental status. Will obtain levels for patient's medications, CT scan of his head and baseline labs. Labs reviewed. No leukocytosis, stable H&H. CMP without sigfniciant abnormality. Depakote is subtherapeutic. Phenytoin at therpeutic level. CT reviewed by radiologist, normal. Discussed finding witht he patient. At this time, he is much more alert and moving all of his extremities. He states tylenol is helping with his CASTRO. He reports that he lives in a hotel and friend was with him becuase he was supposed to have driven the patient to see his neurologist yesterday. Patient did not go to the appointment. He states that he has at least 1 seizure per month. Reports that he often misses his morning doses. He reports that he woke up today, felt fine, smoked marijuana and went back to bed. It was when he woke up again that he felt unwell and had a seizure. States that he currently feels fatigued but is feeling much improved. Patient will be given his typical dose of depakote. His noncompliance is likely the source of his breakthrough seizure. Would like patient to wake up more and provide urine prior to discharge. He may benefit from referral to neurology closer in proximity for management of his seizures. this may improve his compliance with follow up. At the end of my shift, care transitioned to Catarino Hope PA-C. <SUSAN Beckford - Last Filed: 07/30/20 18:30> I assumed care of this 24-year-old gentleman from my colleague SUSAN Dwyer. Please see her initial HPI and examination. In short, patient with known seizure disorder, noncompliance, had a witnessed seizure and came to the ER via EMS. He was postictal upon arrival. Patient has had his work-up initiated, Depakote is subtherapeutic. CT of his head is normal. Patient was given his oral dose of his medications. Plan is to observe in the ER longer, be sure that he is no longer postictal, and obtain a urine sample. Patient will also be given his 100 mg p.o. topiramate. Upon evaluation patient reports that he has a mild headache but is otherwise feeling well. He does not appear to be postictal to me. We discussed options, he is comfortable discharge home but he does not have a ride. Will contact care management to help obtain ride. While here in the ER patient was awake, alert, oriented x3. He was ambulatory to and from the restroom without difficulty. He appears well, nontoxic and is neurologically intact. His urinalysis is unremarkable for obvious infection. Toxicology positive for THC. Patient was observed in the ER for over 4 hours. He is neurologically intact, and at baseline per patient. He is comfortable discharge home and I do not believe that there is any benefit of longer observation. We discussed the importance of compliance of his medications. I will also give him a referral to Dr. Pat and place him on the neurology list to help expedite outpatient care. He was encouraged to watch for new or worsening symptoms and return to the ER for any concerns. HPI <SUSAN Hines - Last Filed: 08/02/20 21:52> General Mode of arrival: EMS . Date/Time Provider Initiated Documentation: 07/30/20 14:58 . Limitations to Documentation: altered mental status (Patient post ictal state) . Information obtained by: EMS, RN notes reviewed and old records reviewed . History of Present Illness 24 year old M presents to the emergency department with the chief complaint of Seizure, described as similar to prior episodes, and it has been now resolved (Patient has resolved prior to EMS arrival). Patient did receive the following treatments prior to arrival, none Related Data Home Medications Medication Instructions Recorded Confirmed divalproex 1,000 mg PO BID 06/29/20 07/30/20 phenytoin sodium See Rx Instructions .ROUTE .COMPLEX 06/29/20 07/30/20 topiramate 100 mg PO BID #60 tab 06/30/20 07/30/20 Previous Rx's Medication Instructions Recorded topiramate 100 mg PO BID #60 tab 06/30/20 Allergies Allergy/AdvReac Type Severity Reaction Status Date / Time levetiracetam [From Kera] Allergy Unverified 07/30/20 14:17 General PIA: 1 Review of Systems <SUSAN Hines - Last Filed: 08/02/20 21:52> Unobtainable due to mental condition PFSH <SUSAN Hines - Last Filed: 08/02/20 21:52> Medical History Seizure disorder Social History Smoking/Tobacco Use Status: Current every day Tobacco Type: cigarettes Smoking risk assessment performed?: Yes Alcohol Intake: never Drug use: Daily Substance use type: marijuana Details: Unable to obtain complete Hx. Do you feel safe at home: Yes (Unable to obtain) Do you feel safe in your relationship?: Yes Exam <SUSAN Hines - Last Filed: 08/02/20 21:52> Const General: comfortable, no acute distress and ill appearing acutely Nutritional Appearance: average body habitus and well nourished Orientation: alert, awake and other (Good eye contact but no verbal responses to questioning) [facility] Head: normal to inspection, no palpable skull fracture, normocephalic and atraumatic Ears: external ears normal and TM's normal bilaterally General nose exam: external nose normal Face and sinus: normal facial exam Mouth: oral mucosae normal, lip normal and tongue normal Teeth and gingiva: dentition normal Eyes General: appearance normal, both eyes and all related structures Visual Young: normal visual young by confrontation Alignment and Position: alignment normal and position normal Pupils: PERRL EOM: EOM intact bilaterally Neck Neck: normal visual inspection, full ROM, no lymphadenopathy and no meningeal signs Resp Effort & Inspection: normal respiratory effort, able to speak in complete sentences and no respiratory distress Auscultation: clear to auscultation bilaterally Cardio Rate: regular rate Rhythm: regular rhythm Heart Sounds: S1 normal and S2 normal GI Inspection: normal to inspection Palpation: soft, no hepatosplenomegaly and nontender Percussion: normal to percussion Auscultation: normal bowel sounds Skin General skin exam: no rashes or lesions noted Neuro General: patient alert and patient awake Cranial Nerves: CN's II-XI intact bilaterally Cognition: normal cognition Speech: speech normal Motor: muscle tone normal throughout, strength 5/5 throughout, no pronator drift and no movement abnormalities noted Psych Appearance: grossly normal and well kempt Mental Status: mental status grossly normal Speech and Movement: speech and movement normal Sign Out <SUSAN Hines - Last Filed: 08/02/20 21:52> Sign Out Data: Sign Out Comment: Patient remains postictal. Needs to wake up more, ambulate and provide urine prior to discharge. Noncompliant. Ordered PO medications at his typical dosing. Last updated by Kelly Dwyer PA at 07/30/20 16:32
--- NOTE | 2020-07-30 13:45 | DI.CT_ITS ---
EXAM: CT HEAD CERVICAL SPINE WO CLINICAL HISTORY: s/p seizure. TECHNIQUE: Imaging Protocol: Axial computed tomography images with coronal and sagittal reformatted images were created and reviewed COMPARISON: CT CT HEAD CERVICAL SPINE WO from 06/29/2020 FINDINGS: BRAIN: There are no skull fractures nor fluid in the visualized paranasal sinuses. There is no evidence of intracranial hemorrhage, mass effect, or shift of midline structures. There are no extra-axial fluid collections. The ventricles are not enlarged or shifted and there is no blo od within the ventricular system nor within the basal cisterns. CERVICAL SPINE: There is no evidence of fracture nor listhesis. No significant prevertebral soft tissue swelling. N o facet malalignment evident. No significant osseous lesions evident. IMPRESSION: No acute intracranial findings on this noninfused CT scan of the brain. No evidence of cervical spine fracture, malalignment, nor acute compromise of the cervical spinal can al. RADIATION DOSE DELIVERED: 1,108.3mGy.cm Total DLP DATA REPOSITORY: All CT scans at this facility are submitted to the National Radiology Data Registry (NRDR) Dose Index Registry (DIR) with the [employer] ([employer]). RADIATION OPTIMIZATION: All CT scans at this facility use at least one of these dose optimization te chniques: automated exposure control; mA and/or kV adjustment per patient size (includes targeted exa ms where dose is matched to clinical indication); or iterative reconstruction.
[2020-07-30] MEDS: Normal Saline 1,000 ML 1000 ML IV (14:03)
[2020-07-30 14:10] LABS: Abs Immature Grans 0.01 10^3/uL (0.0-0.06); Absolute Basophil Count 0.02 10^3/uL (0.0-0.2); Absolute Eosinophil Count 0.03 10^3/uL (0.0-0.7); Absolute Lymphocyte Count 0.78 10^3/uL (1.2-3.4); Absolute Monocyte Count 0.47 10^3/uL (0.1-0.8); Absolute Neutrophil Count 5.78 10^3/uL (1.2-6.7); Basophils % 0.3; Eosinophils % 0.4; HCT 45.9 % (40.0-50.0); HGB 15.2 g/dL (13.5-17.5); Immature Grans % 0.1; MCH 30.2 pg (27.0-33.0); MCHC 33.1 % (32.0-36.0); MCV 91.3 fL (80-95); MPV 9.5 fL (8.0-11.0); Monocytes % 6.6; Neutrophils % 81.6; Nucleated RBC 0 %; Platelet Count 174 10^3/uL (130-400); RBC 5.03 10^6/uL (4.36-5.78); RDW-SD 44.1 fL; WBC 7.09 10^3/uL (4.4-10.8)
[2020-07-30 14:25] LABS: VALPROIC ACID 35.8 ug/mL (50-100)
[2020-07-30 14:35] LABS: PHENYTOIN (DILANTIN) 12.2 ug/mL (10.0-20.0)
[2020-07-30 14:36] LABS: ALT 14 U/L (16-63); AST 10 U/L (15-37); Albumin 4.1 g/dL (3.4-5.0); Alkaline Phosphatase 78 U/L (46-116); Anion Gap 7.8 mmol/L (3-11); BUN 6 mg/dL (7-18); Bilirubin, Total 0.4 mg/dL (0.2-1.0); CO2 27.2 mmol/L (21.0-32.0); Chloride 103 mmol/L (98-107); Glucose 103 mg/dL (74-106); Potassium 3.6 mmol/L (3.5-5.1); Sodium 138 mmol/L (136-145); TSH 1.53 uIU/mL (0.36-3.74); Total Protein 7.5 g/dL (6.4-8.2)
[2020-07-30 14:37] LABS: ETHANOL BLOOD < 3.0 mg/dL (<3)
[2020-07-30] MEDS: ACETAMINOPHEN 1,000 MG/100 ML BTL 400 MG IVPB (15:30)
[2020-07-30] MEDS: Divalproex 500 MG TABEC 1000 MG PO (16:44)
[2020-07-30 18:01] LABS: Bilirubin Negative (Negative); Blood Negative (Negative); Clarity Clear (Clear); Glucose Negative (Negative); Ketones 15 mg/dL (Negative); Leukocyte Esterase Negative (Negative); Nitrite Negative (Negative); Specific Gravity 1.025 (1.005-1.025); Urobilinogen 0.2 EU/dL (Up TO 0.2)
[2020-07-30 18:07] LABS: Bacteria Negative HPF (Negative); C & S Indicated? No; Casts Negative LPF (Negative); Crystals Negative HPF (Negative); Epithelial Cells Rare HPF (Negative); Mucus Trace (Negative); RBC 0-2 HPF (0-2); WBC 0-2 HPF (0-5)
[2020-07-30 18:13] LABS: *AMPHETAMINES SCREEN URINE Negative (Negative); *BARBITURATES SCREEN URINE Negative (Negative); *BENZODIAZEPINES SCREEN URINE Negative (Negative); Cannabinoids THC POSITIVE (Negative); Cocaine Screen,Urine Negative (Negative); METHADONE URINE SCREEN Negative (Negative); OPIATES URINE SCREEN Negative (Negative)
[2020-07-30] MEDS: Topiramate 100 MG TAB PO (18:16)
[2020-07-30 18:18] LABS: Tricyclic Antidepressants Negative (Negative)
--- NOTE | 2020-07-30 23:41 | NUR.NOTE ---
sent referral to neurology for floow up in a week for seizures non compliant Subhash Sethi Note:
== END 2020-07-30 21:41 | disposition home or self-care (01) ==
PROVIDERS: Physician Assistant; Emergency Provider Physician Assistant
DX: G40.802 Other epilepsy, not intractable, without status epilepticus (principal); T42.6X6A Underdosing of other antiepileptic and sedative-hypnotic drugs, initial encounter; Z91.128 Patient's intentional underdosing of medication regimen for other reason; F12.10 Cannabis abuse, uncomplicated
CPT/HCPCS: 36415; 80053; 80307; 93005; 96361; 96374; 99285; 70450; 72125; 80164; 80185; 80320; 81003; 81015; 83735; 84443; 85025; 93010; J0131